=== PATIENT | female | born 1950 | race Caucasian/White ===

== ENCOUNTER 2017-02-22 10:05 | Inpatient (IN) | payer MEDICARE, BC ==
[2017-02-22] MEDS ORDERED: Diltiazem 125 MG in Sodium Chloride 0.9% 100 ML IV SCH (10:15)
[2017-02-22] MEDS ORDERED: Sodium Chloride 0.9% 10 ML Syringe FLUSH PRN (10:15)
[2017-02-22] MEDS ORDERED: Diltiazem 25 MG/5 ML SDV IVPUSH ONE (10:15)
--- NOTE | 2017-02-22 10:21 | EDM.PDOC ---
ED HPI GENERAL MEDICAL PROBLEM - General Chief Complaint: Cardiovascular Problem Stated Complaint: [facility] Time Seen by Provider: 02/22/17 10:10 Source of Information: Reports: Patient, EMS History Limitations: Reports: No Limitations - History of Present Illness INITIAL COMMENTS - FREE TEXT/NARRATIVE: The patient presents with new onset A-fib. She woke up this morning feeling fine and later she got lightheaded and dizzy. 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 She noticed her heart rate was fast and she called 911. EMS did a 12 lead and she was in A- fib. She denies fever, chills, cough, chest pain, shortness of breath, nausea, vomiting or abdominal pain. She has a history of HTN. She is also on a statin for border line high cholesterol. She said she had a stress test a few months ago and after that her painter helper sign recommended she go on a statin. She has no other health problems. Onset: Sudden Duration: Minutes: Severity: Moderate Improves with: Reports: None Worsens with: Reports: Movement Context: Reports: Activity (She was getting ready for the day) Associated Symptoms: Reports: No Other Symptoms - Related Data Allergies Allergy/AdvReac Type Severity Reaction Status Date / Time No Known Allergies Allergy Verified 02/22/17 10:10 Home Meds: Home Meds Aspirin 81 mg PO BEDTIME 02/22/17 [History] Bacillus Coagulans [Probiotic] 2 tab.chew PO DAILY 02/22/17 [History] Calcium Citrate/Vitamin D3 [Citracal + D Maximum Caplet] 2 tab PO BID 02/22/17 [ History] Co Q 10 Liquid 10 ml PO DAILY 02/22/17 [History] Glucosam/Chond/Hyalu/Cf Borate [Move Free Joint Health Tablet] 1 tab PO DAILY [History] Hydrochlorothiazide 25 mg PO DAILY 02/22/17 [History] MV,Ca,Min/Iron Fum/FA/Vit K [Essential Woman Tablet] 1 tab PO DAILY 02/22/17 [ History] Metoprolol Tartrate 100 mg PO BID 02/22/17 [History] Optifiber Powder 1 tsp PO DAILY 02/22/17 [History] Potassium 99 mg PO DAILY 02/22/17 [History] Skin And Nails 2 tab PO DAILY 02/22/17 [History] amLODIPine [Norvasc] 5 mg PO DAILY 02/22/17 [History] atorvaSTATin [Lipitor] 20 mg PO BEDTIME 02/22/17 [History] Social & Family History - Tobacco Use Smoking Status *Q: Never Smoker - Caffeine Use Caffeine Use: Reports: Coffee, Tea - Recreational Drug Use Recreational Drug Use: No ED ROS GENERAL - Review of Systems Review Of Systems: See Below Constitutional: Reports: No Symptoms HEENT: Reports: No Symptoms Respiratory: Reports: No Symptoms Cardiovascular: Reports: Lightheadedness. Denies: Chest Pain Endocrine: Reports: No Symptoms GI/Abdominal: Reports: No Symptoms : Reports: No Symptoms Musculoskeletal: Reports: No Symptoms ED EXAM, GENERAL - Physical Exam Exam: See Below Exam Limited By: No Limitations General Appearance: Alert, No Apparent Distress Ears: Normal External Exam Nose: Normal Inspection Head: Atraumatic, Normocephalic Neck: Normal Inspection Respiratory/Chest: No Respiratory Distress, Lungs Clear, Normal Breath Sounds Cardiovascular: No Murmur, Tachycardia, Irregularly Irregular GI/Abdominal: Soft, Non-Tender, No Organomegaly, No Mass Back Exam: Normal Inspection Extremities: Normal Inspection Neurological: Alert, Oriented, No Motor/Sensory Deficits EKG INTERPRETATION EKG Date: 02/22/17 Time: 10:15 Rhythm: A-Fib Rate (Beats/Min): 131 [place]: Normal QRS: Normal ST-T: Normal QT: Normal EKG Interpretation Comments: PVCs Course - Vital Signs Last Recorded V/S: Last Vital Signs Temp 97.1 F 02/22/17 10:10 Pulse 127 H 02/22/17 10:10 Resp 18 02/22/17 10:10 BP 154/85 H 02/22/17 10:10 Pulse Ox 100 02/22/17 10:10 - Orders/Labs/Meds Orders: Active Orders 24 hr Category Date Time Status Cardiac Monitoring [RC] . DIRECTED Care 02/22/17 10:15 Active EKG 12 Lead [EKG Documentation Completion] [RC] STAT Care 02/22/17 10:10 Active Oxygen Therapy [RC] PRN Care 02/22/17 10:15 Active Peripheral IV Care [RC] . DIRECTED Care 02/22/17 10:15 Active Diltiazem 125 mg Med 02/22/17 10:15 Active Sodium Chloride 0.9% [Normal Saline] 100 ml IV TITRATE Sodium Chloride 0.9% [Saline Flush] Med 02/22/17 10:15 Active 10 ml FLUSH ASDIRECTED PRN Peripheral IV Insertion Adult [OM.PC] Stat Oth 02/22/17 10:15 Ordered Medication Orders Diltiazem HCl 125 mg/ Sodium (Chloride) 125 mls @ 10 mls/hr IV TITRATE CARMEL; 10 MG/HR PRN Reason: Protocol Last Admin: 02/22/17 10:32 Dose: 10 mg/hr, 10 mls/hr Sodium Chloride (Saline Flush) 10 ml FLUSH ASDIRECTED PRN PRN Reason: Keep Vein Open Last Admin: 02/22/17 10:18 Dose: 10 ml Labs: Laboratory Tests 02/22/17 02/22/17 Range/Units 10:33 10:33 WBC 9.36 (3.98-10.04) K/mm3 RBC 4.91 (3.98-5.22) M/mm3 Hgb 15.2 (11.2-15.7) gm/L Hct 43.4 (34.1-44.9) % MCV 88.4 (79.4-94.8) fl MCH 31.0 (25.6-32.2) pg MCHC 35.0 (32.2-35.5) g/dl RDW Std Deviation 41.9 (36.4-46.3) fL Plt Count 275 (182-369) K/mm3 MPV 10.4 (9.4-12.3) fl Neut % (Auto) 72.1 H (34.0-71.1) % Lymph % (Auto) 14.2 L (19.3-51.7) % [place] % (Auto) 11.6 (4.7-12.5) % Eos % (Auto) 1.4 (0.7-5.8) Baso % (Auto) 0.4 (0.1-1.2) % Neut # (Auto) 6.74 H (1.56-6.13) K/mm3 Lymph # (Auto) 1.33 (1.18-3.74) K/mm3 [place] # (Auto) 1.09 H (0.24-0.36) K/mm3 Eos # (Auto) 0.13 (0.04-0.36) K/mm3 Baso # (Auto) 0.04 (0.01-0.08) K/mm3 Sodium 144 (136-145) mEq/L Potassium 3.2 L (3.5-5.1) mEq/L Chloride 106 (98-107) mEq/L Carbon Dioxide 28 (21-32) mEq/L Anion Gap 13.2 (5-15) BUN 15 (7-18) mg/dL Creatinine 1.0 (0.55-1.02) mg/dL Est Cr Clr Drug Dosing 45.78 mL/min Estimated GFR (MDRD) 55 (>60) mL/min BUN/Creatinine Ratio 15.0 (14-18) Glucose 109 (80-115) mg/dL Calcium 9.9 (8.5-10.1) mg/dL Total Bilirubin 0.5 (0.2-1.0) mg/dL AST 17 (15-37) U/L ALT 24 (14-59) U/L Alkaline Phosphatase 87 (46-116) U/L Troponin I < 0.017 (0.00-0.056) ng/mL Total Protein 8.3 H (6.4-8.2) g/dl Albumin 4.0 (3.4-5.0) g/dl Globulin 4.3 gm/dL Albumin/Globulin Ratio 0.9 L (1-2) Meds: Medications Generic Name Dose Route Start Last Admin Trade Name Freq PRN Reason Stop Dose Admin Diltiazem HCl 125 mg/ Sodium 125 mls @ 10 mls/hr 02/22/17 10:15 02/22/17 10: 32 Chloride IV 10 mg/hr TITRATE CARMEL 10 mls/hr Protocol Administration 10 MG/HR Sodium Chloride 10 ml 02/22/17 10:15 02/22/17 10:18 Saline Flush FLUSH 10 ml ASDIRECTED PRN Administration Keep Vein Open Discontinued Medications Generic Name Dose Route Start Last Admin Trade Name Freq PRN Reason Stop Dose Admin Diltiazem HCl 10 mg 02/22/17 10:15 02/22/17 10:29 Diltiazem IVPUSH 02/22/17 10:16 10 mg ONETIME ONE Administration - Re-Assessments/Exams Free Text/Narrative Re-Assessment/Exam: 02/22/17 10:23 I ordered an IV saline lock, EKG, labs, cardizem bolus of 10mg and a drip at 10mg/hr. 02/22/17 11:55 Her EKG shows atrial fibrillation with PVCs at a rate of 131 with no acute changes. Her CXR shows cardiomegaly. Her CBC looks good. Her K was a little low at 3.2. Her troponin was negative. Her heart rate is better in the low 100s and upper 90s. I feel she needs to be admitted. I called Dr Wagner and she agreed to the admission. Departure - Departure Time of Disposition: 12:00 Disposition: Admitted As Inpatient 67 Condition: Fair Clinical Impression: Atrial fibrillation with RVR Forms: ED Department Discharge - My Orders Last 24 Hours: My Active Orders 02/22/17 10:10 EKG 12 Lead [EKG Documentation Completion] [RC] STAT 02/22/17 10:15 Cardiac Monitoring [RC] . DIRECTED Oxygen Therapy [RC] PRN Peripheral IV Care [RC] . DIRECTED Diltiazem 125 mg Sodium Chloride 0.9% [Normal Saline] 100 ml IV TITRATE Sodium Chloride 0.9% [Saline Flush] 10 ml FLUSH ASDIRECTED PRN Peripheral IV Insertion Adult [OM.PC] Stat - Assessment/Plan Last 24 Hours: My Active Orders 02/22/17 10:10 EKG 12 Lead [EKG Documentation Completion] [RC] STAT 02/22/17 10:15 Cardiac Monitoring [RC] . DIRECTED Oxygen Therapy [RC] PRN Peripheral IV Care [RC] . DIRECTED Diltiazem 125 mg Sodium Chloride 0.9% [Normal Saline] 100 ml IV TITRATE Sodium Chloride 0.9% [Saline Flush] 10 ml FLUSH ASDIRECTED PRN Peripheral IV Insertion Adult [OM.PC] Stat
--- NOTE | 2017-02-22 11:10 | CR ---
Chest: Portable view of the chest was obtained. Comparison: No previous study. Heart is enlarged. Upper mediastinum is normal. Lungs are clear. Bony structures are grossly intact. Impression: 1. Cardiomegaly. Nothing acute is otherwise seen on portable chest x-ray. Diagnostic code #2
--- NOTE | 2017-02-22 14:23 | PCM.HP ---
H&P History of Present Illness - General Date of Service: 02/22/17 Admit Problem/Dx: Admission Diagnosis/Problem Admission Diagnosis/Problem Atrial fibrillation Source of Information: Patient, Family, Provider History Limitations: Reports: No Limitations - History of Present Illness Initial Comments - Free Text/Narative: 67 year old female reportedly never had A fib but med list includes metoprolol 100 mg BID. She has recently been camping near the [facility]. She reports palpitations, dizziness, but denied chest pain and shortness of breath; ECG documented AFib with RVR. The patient reportedly took her blood pressure and found that her SBP was 70. When evaluated by EMS, the A fib was documented. Onset of Symptoms: Reports: Sudden Symptom Onset Date: 02/19/17 Duration of Symptoms: Reports: Day(s):, Getting Worse Location: Reports: Chest Quality: Reports: Same as Previous Episode Severity: Moderate Improves with: Reports: Medication Worsens with: Reports: None Associated Symptoms: Reports: Weakness - Related Data Allergies/Adverse Reactions: Allergies Allergy/AdvReac Type Severity Reaction Status Date / Time No Known Allergies Allergy Verified 02/22/17 10:10 Home Medications: Home Meds Aspirin 81 mg PO BEDTIME 02/22/17 [History] Bacillus Coagulans [Probiotic] 2 tab.chew PO DAILY 02/22/17 [History] Calcium Citrate/Vitamin D3 [Citracal + D Maximum Caplet] 2 tab PO BID 02/22/17 [ History] Co Q 10 Liquid 10 ml PO DAILY 02/22/17 [History] Glucosam/Chond/Hyalu/Cf Borate [Move Free Joint Health Tablet] 1 tab PO DAILY [History] Hydrochlorothiazide 25 mg PO DAILY 02/22/17 [History] MV,Ca,Min/Iron Fum/FA/Vit K [Essential Woman Tablet] 1 tab PO DAILY 02/22/17 [ History] Metoprolol Tartrate 100 mg PO BID 02/22/17 [History] Optifiber Powder 1 tsp PO DAILY 02/22/17 [History] Potassium 99 mg PO DAILY 02/22/17 [History] Skin And Nails 2 tab PO DAILY 02/22/17 [History] amLODIPine [Norvasc] 5 mg PO DAILY 02/22/17 [History] atorvaSTATin [Lipitor] 20 mg PO BEDTIME 02/22/17 [History] Past Medical History Cardiovascular History: Reports: Hypertension 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 Social & Family History - Family History Cardiac: Reports: [place], Other (See Below) Other Cardiac Family History: mother of an [place], father had HTN and had a stroke, also states brother had a stroke - Tobacco Use Smoking Status *Q: Never Smoker Second Hand Smoke Exposure: No - Caffeine Use Caffeine Use: Reports: Coffee, Tea Caffeine Use Comment: drinks one cup of tea or coffee in the morning - Recreational Drug Use Recreational Drug Use: No H&P Review of Systems - Review of Systems: Review Of Systems: See Below General: Reports: Weakness HEENT: Reports: No Symptoms Pulmonary: Reports: No Symptoms Cardiovascular: Reports: Palpitations, Lightheadedness Gastrointestinal: Reports: No Symptoms Genitourinary: Reports: No Symptoms Musculoskeletal: Reports: No Symptoms Skin: Reports: No Symptoms Psychiatric: Reports: No Symptoms Neurological: Reports: No Symptoms Hematologic/Lymphatic: Reports: No Symptoms Immunologic: Reports: No Symptoms Exam - Exam Exam: See Below - Vital Signs Vital Signs: Last Vital Signs Temp 36.2 C 02/22/17 10:10 Pulse 127 H 02/22/17 10:10 Resp 18 02/22/17 10:10 BP 154/85 H 02/22/17 10:10 Pulse Ox 96 02/22/17 10:15 Weight: 80.1 kg - Exam Quality Assessment: Supplemental Oxygen, DVT Prophylaxis General: Alert, Oriented, Cooperative HEENT: EACs Clear, Nares Patent, Normal Nasal Septum, Pupils Equal, Pupils Reactive, PERRLA Neck: Supple, Trachea Midline Lungs: Normal Respiratory Effort Cardiovascular: Regular Rate, Irregular Rhythm, Tachycardia GI/Abdominal Exam: Normal Bowel Sounds, Soft, Non-Tender, No Organomegaly, No Distention (Female) Exam: Deferred Rectal (Female) Exam: Deferred Back Exam: Normal Inspection Extremities: Normal Inspection, No Pedal Edema Skin: Warm, Dry, Intact Neurological: Cranial Nerves Intact Neuro Extensive - Mental Status: Alert, Oriented x3, Normal Mood/Affect, Normal Cognition, Memory Intact Neuro Extensive - Motor, Sensory, Reflexes: CN II-XII Intact Psychiatric: Alert, Normal Affect, Normal Mood - Patient Data Result Diagrams: 02/22/17 10:33 02/22/17 10:33 *Q Meaningful Use (ADM) - VTE *Q VTE Criteria *Q: - Stroke *Q Stroke Criteria *Q: - AMI *Q AMI Criteria *Q: Problem List Initiated/Reviewed/Updated: Yes Orders Last 24hrs: Active Orders 24 hr Category Date Time Status Patient Status [ADT] Routine ADT 02/22/17 13:28 Active EKG 12 Lead [EKG Documentation Completion] [RC] STAT Care 02/22/17 13:52 Active Medication Orders Diltiazem HCl 125 mg/ Sodium (Chloride) 125 mls @ 10 mls/hr IV TITRATE CARMEL; 10 MG/HR PRN Reason: Protocol Last Titration: 02/22/17 13:51 Dose: 5 mg/hr, 5 mls/hr Admin: 02/22/17 10:32 Dose: 10 mg/hr, 10 mls/hr Sodium Chloride (Saline Flush) 10 ml FLUSH ASDIRECTED PRN PRN Reason: Keep Vein Open Last Admin: 02/22/17 10:18 Dose: 10 ml Assessment/Plan Comment:: Impression: A Fib with RVR, CHADS2, 1-->2.8% CVA risk yearly HTN HLD Plan: ASA BB Cardizem gtt as needed. Cardiac enzymes CM/PT/OT DVT/GI prophylaxis
[2017-02-22] MEDS: Metoprolol Tartrate 100 MG Tab PO SCH (20:35)
[2017-02-22] MEDS ORDERED: Simvastatin 20 MG Tab PO SCH (21:00)
[2017-02-22] MEDS ORDERED: Aspirin 81 MG Tab.Chew PO SCH (21:00)
[2017-02-23] MEDS ORDERED: amLODIPine 5 MG Tab PO SCH (09:00)
[2017-02-23] MEDS: Metoprolol Tartrate 100 MG Tab PO SCH (09:00)
[2017-02-23] MEDS ORDERED: Hydrochlorothiazide 25 MG Tab PO SCH (09:00)
[2017-02-23] MEDS ORDERED: Potassium Chloride 20 MEQ Tab.ER PO ONE (11:26)
[2017-02-23 12:52] VITALS: BP 145/83
--- NOTE | 2017-02-23 14:46 | PCM.DCSUM1 ---
Discharge Summary - Hospital Course Free Text/Narrative:: 67 year old female on vacation from [place], presented with A Fib with RVR. Stated that she has never experienced A Fib before this ED visit. Has seen a signal circuit designer less than 6 months ago, had a negative stress test. High dose lopressor was prescribed by her former PCP. After a brief ICU stay, converted to SR, she will be DCd on Lopressor 100 mg, take 1/2 tab BID as direcetd. She has been instructed to hold the dose if her HR is less than 70 BPM. Dx A Fib with RVR HTN HLD Meds Home meds, take Norvasc at bedtime Decrease Lopressor 50 mg BID Follow Up Cardiology PCP - Discharge Data Discharge Date: 02/23/17 Discharge Disposition: Home, Self-Care 01 Condition: Good - Patient Summary/Data Consults: Consultations 02/22/17 14:32 Consult to Case Management [CONS] Routine 02/22/17 14:33 Consult to Occupational Therapy [OT Evaluation and Treatment] [CONS] Routine Consult to Physical Therapy [PT Evaluation and Treatment] [CONS] Routine - Patient Instructions Diet: Usual Diet as Tolerated Activity: As Tolerated Driving: May Drive Today Showering/Bathing: May Shower Notify Provider of: Nausea and/or Vomiting - Discharge Plan Prescriptions/Med Rec: Metoprolol Tartrate 50 mg PO BID 15 Days Home Medications: Home Meds Aspirin 81 mg PO BEDTIME 02/22/17 [History] Bacillus Coagulans [Probiotic] 2 tab.chew PO DAILY 02/22/17 [History] Calcium Citrate/Vitamin D3 [Citracal + D Maximum Caplet] 2 tab PO BID 02/22/17 [ History] Co Q 10 Liquid 10 ml PO DAILY 02/22/17 [History] Glucosam/Chond/Hyalu/Cf Borate [Move Free Joint Health Tablet] 1 tab PO DAILY [History] Hydrochlorothiazide 25 mg PO DAILY 02/22/17 [History] MV,Ca,Min/Iron Fum/FA/Vit K [Essential Woman Tablet] 1 tab PO DAILY 02/22/17 [ History] Metoprolol Tartrate 100 mg PO BID 02/22/17 [History] Optifiber Powder 1 tsp PO DAILY 02/22/17 [History] Potassium 99 mg PO DAILY 02/22/17 [History] Skin And Nails 2 tab PO DAILY 02/22/17 [History] amLODIPine [Norvasc] 5 mg PO DAILY 02/22/17 [History] atorvaSTATin [Lipitor] 20 mg PO BEDTIME 02/22/17 [History] Metoprolol Tartrate 50 mg PO BID 15 Days 02/23/17 [Rx] Patient Handouts: Atrial Fibrillation, [id number] Forms: ED Department Discharge Referrals: PCP,Not In Area [Primary Care Provider] - - Discharge Summary/Plan Comment DC Time >30 min.: No - General Info Date of Service: 02/22/17 Functional Status: Reports: Tolerating Diet, Ambulating, Urinating - Review of Systems General: Reports: No Symptoms HEENT: Reports: No Symptoms Pulmonary: Reports: No Symptoms Cardiovascular: Reports: No Symptoms Gastrointestinal: Reports: No Symptoms Genitourinary: Reports: No Symptoms Musculoskeletal: Reports: No Symptoms Skin: Reports: No Symptoms Neurological: Reports: No Symptoms Psychiatric: Reports: No Symptoms - Patient Data Vitals - Most Recent: Last Vital Signs Temp 36.8 C 02/23/17 12:07 Pulse 58 L 02/23/17 12:07 Resp 12 02/23/17 12:07 BP 145/83 H 02/23/17 12:07 Pulse Ox 97 02/23/17 12:07 Weight - Most Recent: 80.739 kg I&O - Last 24 hours: Intake & Output 02/22/17 02/23/17 02/23/17 22:59 06:59 14:59 Intake Total 320 423 180 Output Total 300 Balance 320 123 180 Lab Results - Last 24 hrs: Laboratory Results - last 24 hr 02/22/17 02/23/17 02/23/17 Range/Units 18:30 05:40 05:40 WBC 6.53 (3.98-10.04) K/mm3 RBC 4.37 (3.98-5.22) M/mm3 Hgb 13.4 (11.2-15.7) gm/L Hct 39.0 (34.1-44.9) % MCV 89.2 (79.4-94.8) fl MCH 30.7 (25.6-32.2) pg MCHC 34.4 (32.2-35.5) g/dl RDW Std Deviation 43.5 (36.4-46.3) fL Plt Count 267 (182-369) K/mm3 MPV 10.7 (9.4-12.3) fl Neut % (Auto) 55.1 (34.0-71.1) % Lymph % (Auto) 27.1 (19.3-51.7) % [place] % (Auto) 13.5 H (4.7-12.5) % Eos % (Auto) 3.8 (0.7-5.8) Baso % (Auto) 0.5 (0.1-1.2) % Neut # (Auto) 3.60 (1.56-6.13) K/mm3 Lymph # (Auto) 1.77 (1.18-3.74) K/mm3 [place] # (Auto) 0.88 H (0.24-0.36) K/mm3 Eos # (Auto) 0.25 (0.04-0.36) K/mm3 Baso # (Auto) 0.03 (0.01-0.08) K/mm3 PT 11.3 (8.0-13.0) SECONDS INR 1.03 Sodium (136-145) mEq/L Potassium (3.5-5.1) mEq/L Chloride (98-107) mEq/L Carbon Dioxide (21-32) mEq/L Anion Gap (5-15) BUN (7-18) mg/dL Creatinine (0.55-1.02) mg/dL Est Cr Clr Drug Dosing mL/min Estimated GFR (MDRD) (>60) mL/min BUN/Creatinine Ratio (14-18) Glucose (80-115) mg/dL Calcium (8.5-10.1) mg/dL Magnesium (1.8-2.4) mg/dl Troponin I < 0.017 (0.00-0.056) ng/mL C-Reactive Protein (<1.0) mg/dL 02/23/17 02/23/17 Range/Units 05:40 05:40 WBC (3.98-10.04) K/mm3 RBC (3.98-5.22) M/mm3 Hgb (11.2-15.7) gm/L Hct (34.1-44.9) % MCV (79.4-94.8) fl MCH (25.6-32.2) pg MCHC (32.2-35.5) g/dl RDW Std Deviation (36.4-46.3) fL Plt Count (182-369) K/mm3 MPV (9.4-12.3) fl Neut % (Auto) (34.0-71.1) % Lymph % (Auto) (19.3-51.7) % [place] % (Auto) (4.7-12.5) % Eos % (Auto) (0.7-5.8) Baso % (Auto) (0.1-1.2) % Neut # (Auto) (1.56-6.13) K/mm3 Lymph # (Auto) (1.18-3.74) K/mm3 [place] # (Auto) (0.24-0.36) K/mm3 Eos # (Auto) (0.04-0.36) K/mm3 Baso # (Auto) (0.01-0.08) K/mm3 PT (8.0-13.0) SECONDS INR Sodium 143 (136-145) mEq/L Potassium 3.1 L (3.5-5.1) mEq/L Chloride 105 (98-107) mEq/L Carbon Dioxide 28 (21-32) mEq/L Anion Gap 13.1 (5-15) BUN 23 H (7-18) mg/dL Creatinine 0.8 (0.55-1.02) mg/dL Est Cr Clr Drug Dosing 57.22 mL/min Estimated GFR (MDRD) > 60 (>60) mL/min BUN/Creatinine Ratio 28.8 H (14-18) Glucose 96 (80-115) mg/dL Calcium 8.7 (8.5-10.1) mg/dL Magnesium 1.9 (1.8-2.4) mg/dl Troponin I < 0.017 (0.00-0.056) ng/mL C-Reactive Protein < 0.2 (<1.0) mg/dL Med Orders - Current: Current Medications Amlodipine Besylate (Norvasc) 5 mg PO DAILY [facility] Last Admin: 02/23/17 09:00 Dose: 5 mg Aspirin (Aspirin) 81 mg PO BEDTIME [facility] Last Admin: 02/22/17 20:35 Dose: 81 mg Hydrochlorothiazide (Hydrochlorothiazide) 25 mg PO DAILY [facility] Last Admin: 02/23/17 09:00 Dose: 25 mg Metoprolol Tartrate (Lopressor) 100 mg PO BID CARMEL Last Admin: 02/23/17 09:00 Dose: Not Given Simvastatin (Zocor) 20 mg PO BEDTIME CARMEL Last Admin: 02/22/17 20:35 Dose: 20 mg Sodium Chloride (Saline Flush) 10 ml FLUSH ASDIRECTED PRN PRN Reason: Keep Vein Open Last Admin: 02/22/17 10:18 Dose: 10 ml Discontinued Medications Diltiazem HCl (Diltiazem) 10 mg IVPUSH ONETIME ONE Stop: 02/22/17 10:16 Last Admin: 02/22/17 10:29 Dose: 10 mg Diltiazem HCl 125 mg/ Sodium (Chloride) 125 mls @ 10 mls/hr IV TITRATE CARMEL; 10 MG/HR PRN Reason: Protocol Last Titration: 02/22/17 17:20 Dose: 0 mg/hr, 0 mls/hr Potassium Chloride (Klor-Con M20) 40 meq PO ONETIME ONE Stop: 02/23/17 11:27 Last Admin: 02/23/17 11:40 Dose: 40 meq - Exam Quality Assessment: Reports: DVT Prophylaxis General: Reports: Alert, Oriented, Cooperative, No Acute Distress HEENT: Reports: Pupils Equal, Pupils Reactive, EOMI Neck: Reports: Supple, Trachea Midline, No JVD Lungs: Reports: Clear to Auscultation, Normal Respiratory Effort Cardiovascular: Reports: Regular Rate, Regular Rhythm GI/Abdominal Exam: Normal Bowel Sounds, Soft, Non-Tender, No Organomegaly, No Distention (Female) Exam: Deferred Rectal (Female) Exam: Deferred Back Exam: Reports: Normal Inspection Extremities: Normal Inspection, Normal Range of Motion, Non-Tender, No Pedal Edema, Normal Capillary Refill Skin: Reports: Warm Neurological: Reports: No New Focal Deficit, Normal Gait, Normal Speech Psy/Mental Status: Reports: Alert, Normal Affect, Normal Mood *Q Meaningful Use (DIS) - VTE *Q VTE Criteria *Q: - Stroke *Q Stroke Criteria *Q: - AMI *Q AMI Criteria *Q:
== END 2017-02-23 14:40 | disposition home or self-care (01) | DRG 310 ==
LOC: JD.ED 10:05 → JD.ICU 13:09 → JD.MS 02-23 05:49
PROVIDERS: ADMIT Internal Medicine Cardiovascular Disease; ATTEND Internal Medicine Cardiovascular Disease
DX: I48.91 Unspecified atrial fibrillation (principal); I10 Essential (primary) hypertension; E78.5 Hyperlipidemia, unspecified; Z79.82 Long term (current) use of aspirin; Z79.899 Other long term (current) drug therapy
CPT/HCPCS: 36415; 71010; 80053; 84484; 85025; 93005; 96365; 96366; 96375; 99285; J7030; J7050; 80048; 83735; 85610; 86140; 97162-GP; 97165-GO; 99284; A9270-GY; J3490